=== PATIENT | female | born 1950 | race Caucasian/White ===

== ENCOUNTER → 2018-01-13 | Outpatient (REF) | payer MEDICARE, OTHER ==
[~2018-01-13] MED LIST: ACTONEL150 MG PO; ALEGRA PO; ALLEGRA180 MG PO; CALTRATE 600 OR; CELEBREX100 M1; LUNESTA3 MG OR; PREVACID30 M1 PO
[2018-01-13 09:08] LABS: URINE BILIRUBIN - DIPSTICK NEGATIVE (NEGATIVE); URINE BLOOD DIPSTICK NEGATIVE (NEGATIVE); URINE COLOR YELLOW; URINE GLUCOSE - DIPSTICK NEGATIVE (NEGATIVE); URINE KETONE NEGATIVE (NEGATIVE); URINE LEUK ESTERASE NEGATIVE (NEGATIVE); URINE NITRITE - DIPSTICK NEGATIVE (Negative); URINE PROTEIN - DIPSTICK NEGATIVE (NEG-TRACE); URINE SPECIFIC GRAVITY 1.015; URINE UROBILINOGEN - DIPSTICK 0.2 E.U./dL (0.2)
[2018-01-13 09:09] LABS: URINE CLARITY CLEAR
[2018-01-13 09:11] LABS: HEMATOCRIT 40.7 % (37.0-47.0); MEAN CELL VOLUME 90.6 fL CALC (80.0-100.0); MEAN CORPUSCULAR HGB CONC 31.9 g/L CALC (32.0-36.0); NEUT# 5.22 thou/uL (2.00-7.15); RED BLOOD COUNT 4.49 mill/uL (4.20-5.60); RED CELL DISTRI WIDTH 13.5 % (11.5-15.5)
[2018-01-13 09:43] LABS: ALBUMIN 3.9 g/dL (3.2-5.0); ALKALINE PHOSPHATASE 68 u/l (38-126); ANION GAP 11 (6-22 (CALC)); BILIRUBIN, TOTAL 0.6 mg/dL (0.0-1.4); BUN 17 mg/dL (8-23); BUN/CREATININE RATIO 25 (12-20 (CALC)); CALCULATED LDLCHOLESTEROL 49 mg/dL (62-129 (CALC)); CARBON DIOXIDE 30 mmol/l (22-30); CHLORIDE 105 mmol/l (95-108); CHOLESTEROL HDL RATIO 1.9 (<4.4 (CALC)); CREATININE 0.7 mg/dL (0.5-1.0); GFR > 60 ML/MIN (>=60 (CALC)); GFR FOR AFR.AMER. > 60 ML/MIN (>=60 (CALC)); HDL CHOLESTEROL 74 mg/dL (>=40); POTASSIUM 4.2 mmol/l (3.5-5.1); SGOT/AST 20 u/l (9-36); SODIUM 142 mmol/l (137-146); TOTAL CHOLESTEROL 143 mg/dl (0-199); TOTAL PROTEIN 6.5 g/dL (6.3-8.2); TOTAL TRIGLYCERIDES 94 mg/dl (30-149); VLDL CHOLESTROL 19 mg/dl (1-41 (CALC))
[2018-01-13 10:12] LABS: TSH, 3RD GENERATION 2.25 uIU/mL (0.47 - 4.68)
== END | disposition home or self-care (01) ==
LOC: LAB 08:35
PROVIDERS: ATTEND Nurse Practitioner Adult Health
DX: E78.49 Other hyperlipidemia (principal)

== ENCOUNTER 2018-04-16 08:21 | Day surgery (SDC) | payer MEDICARE, OTHER ==
[~2018-04-16] VITALS: Ht 172.7 cm; Wt 80.3 kg
[~2018-04-16 08:21] MED LIST changes: +ALLERGY10 M1 PO; +LIPITOR40 M1 PO; +MULTI COMPLT PO; +SINGULAIR10 MG PO
[2018-04-16 11:28] VITALS: BP 143/64
== END 2018-04-16 11:37 | disposition home or self-care (01) ==
LOC: ORM 08:21
PROVIDERS: ATTEND Surgery
PROC: 0JH60WZ Insertion of Totally Implantable Vascular Access Device into Chest Subcutaneous Tissue and Fascia, Open Approach (ICD-10-PCS; principal; 2018-04-16)
PROC: 02HV33Z Insertion of Infusion Device into Superior Vena Cava, Percutaneous Approach (ICD-10-PCS; 2018-04-16)
PROC: B518ZZA Fluoroscopy of Superior Vena Cava, Guidance (ICD-10-PCS; 2018-04-16)
DX: C50.912 Malignant neoplasm of unspecified site of left female breast (principal); C77.3 Secondary and unspecified malignant neoplasm of axilla and upper limb lymph nodes

== ENCOUNTER 2020-01-20 07:35 | Day surgery (SDC) | payer MEDICARE, OTHER ==
[~2020-01-20] VITALS: Ht 170.2 cm; Wt 65.8 kg
[~2020-01-20 07:35] MED LIST changes: +B121000 MCG PO; -CALTRATE 600 OR; +CALTRATE 603 PO; -CELEBREX100 M1; +CELEBREX100 M1 PO; +D31000 UNIT PO
[2020-01-20 10:28] VITALS: BP 142/65
== END 2020-01-20 10:45 | disposition home or self-care (01) ==
LOC: ORM 07:35
PROVIDERS: ATTEND Surgery
PROC: 0JPT3WZ Removal of Totally Implantable Vascular Access Device from Trunk Subcutaneous Tissue and Fascia, Percutaneous Approach (ICD-10-PCS; principal; 2020-01-20)
PROC: 02PY33Z Removal of Infusion Device from Great Vessel, Percutaneous Approach (ICD-10-PCS; 2020-01-20)
DX: Z45.2 Encounter for adjustment and management of vascular access device (principal); Z85.3 Personal history of malignant neoplasm of breast; Z92.21 Personal history of antineoplastic chemotherapy; Z92.3 Personal history of irradiation; Z20.828 Contact with and (suspected) exposure to other viral communicable diseases

== ENCOUNTER 2020-10-27 06:50 | Day surgery (SDC) | payer MEDICARE, OTHER ==
[~2020-10-27] VITALS: Ht 167.6 cm; Wt 77.1 kg
[~2020-10-27 06:50] MED LIST changes: -ALLERGY10 M1 PO; +ARIMIDEX1 MG PO; +LORATADINE10 M1 PO; +PROLIA60 MG/ML SC
[2020-10-27 08:40] VITALS: BP 143/69
== END 2020-10-27 08:56 | disposition home or self-care (01) ==
LOC: ENDO 06:50 → ORM 08:00 → ENDO 08:56
PROVIDERS: ATTEND Surgery
PROC: 0DJD8ZZ Inspection of Lower Intestinal Tract, Via Natural or Artificial Opening Endoscopic (ICD-10-PCS; principal; 2020-10-27)
DX: K57.31 Diverticulosis of large intestine without perforation or abscess with bleeding (principal)

== ENCOUNTER 2023-10-04 16:08 | Emergency (ER) | payer MEDICARE, OTHER ==
[~2023-10-04] VITALS: Ht 172.7 cm; Wt 81.0 kg
[~2023-10-04 16:08] MED LIST changes: +AMLODIPINE BESYL5 MG PO
[2023-10-04 16:16] VITALS: BP 156/73
[2023-10-04 16:30] VITALS: BP 144/62
[2023-10-04 18:14] VITALS: BP 144/62
== END 2023-10-04 18:18 | disposition home or self-care (01) ==
LOC: ED 16:08
DX: S00.03XA Contusion of scalp, initial encounter (principal); I10 Essential (primary) hypertension; W01.198A Fall on same level from slipping, tripping and stumbling with subsequent striking against other object, initial encounter